=== PATIENT | male | born 1980 | race Caucasian/White ===

== ENCOUNTER → 2016-09-12 | Outpatient (CLI) | payer OTHER ==
[~2016-09-12] VITALS: Ht 175.3 cm; Wt 97.1 kg
[~2016-09-12] MED LIST: AMOXICILLIN500 MG PO; ATORVASTATIN CA20 MG PO; BIAXIN500 MG PO; INDOCIN25 MG PO; MOTRIN800 MG PO; MUCINEX D ER T1 EACH PO; PRILOSEC20 MG PO; TESSALON PERLE100 MG PO; VENTOLIN HFA18 GM IH; ZITHROMAX250 MG PO
== END | disposition home or self-care (01) ==
LOC: AMB 09-02 10:00
DX: K29.90 Gastroduodenitis, unspecified, without bleeding (principal); B96.81 Helicobacter pylori [H. pylori] as the cause of diseases classified elsewhere; R10.13 Epigastric pain; K21.9 Gastro-esophageal reflux disease without esophagitis; F17.200 Nicotine dependence, unspecified, uncomplicated
CPT/HCPCS: 88305; 88342 TC; B4087; J2250; J3010

== ENCOUNTER 2017-06-06 19:18 | Emergency (ER) | payer BC ==
[~2017-06-06] VITALS: Ht 175.3 cm; Wt 101.6 kg
[2017-06-06 20:06] LABS: HEMATOCRIT 46.6 % (38.0-50.0); MCH 31.9 PG (29.0-34.0); MCHC 36.3 G/DL (30.0-36.0); MCV 87.9 FL (86-99); MEAN PLAT.VOLUME 9.9 uM^3 (9.0-12.4); PLATELET COUNT 201 K/uL (156-360); RBC DIS.WIDTH-SD 38.6 % (39-53); WHITE BLOOD COUNT 9.9 K/uL (4.1-10.2)
[2017-06-06 20:17] LABS: CHLORIDE 103 mEq/L (99-109); POTASSIUM 3.7 mEq/L (3.7-5.4); SODIUM 137 mEq/L (136-147)
[2017-06-06 20:19] LABS: GLUCOSE 90 mg/dL (70-99)
[2017-06-06 20:20] LABS: ANION GAP 15 MEQ/L (2-14)
[2017-06-06 20:23] LABS: GFR ESTIMATE (CALCULATED) > 59 mL/min/
[2017-06-06 20:24] LABS: UREA NITROGEN (BUN) 18 mg/dL (9-23)
[2017-06-06 20:26] LABS: TROP-I INTERPRETATION NEGATIVE; TROPONIN-I < 0.01 ng/mL (0.0-0.30)
[2017-06-06 20:50] VITALS: BP 135/72
== END 2017-06-06 20:50 | disposition home or self-care (01) ==
LOC: EME 19:18
DX: R07.89 Other chest pain (principal); E78.5 Hyperlipidemia, unspecified; K21.9 Gastro-esophageal reflux disease without esophagitis; F17.200 Nicotine dependence, unspecified, uncomplicated; Z88.0 Allergy status to penicillin
CPT/HCPCS: 71020; 80048; 84484; 85027; 93005; 99281; 99284

== ENCOUNTER 2018-04-10 12:11 | Emergency (ER) | payer OTHER ==
[~2018-04-10] VITALS: Ht 175.3 cm; Wt 98.3 kg
[2018-04-10] MEDS ORDERED: DOXYCYCLINE MO100 MG PO (13:46)
[2018-04-10 13:59] VITALS: BP 94/41
== END 2018-04-10 14:14 | disposition home or self-care (01) ==
LOC: EME 12:11
PROC: 3E0234Z Introduction of Serum, Toxoid and Vaccine into Muscle, Percutaneous Approach (ICD-10-PCS; principal; 2018-04-10)
DX: S61.012A Laceration without foreign body of left thumb without damage to nail, initial encounter (principal); W31.2XXA Contact with powered woodworking and forming machines, initial encounter; Z23 Encounter for immunization; Z88.0 Allergy status to penicillin
CPT/HCPCS: 99281; 99284